=== PATIENT | female | born 1935 | race African-American/Black ===

== ENCOUNTER 2016-10-26 09:32 | Inpatient (IN) | payer MEDICARE ==
[~2016-10-26] VITALS: Ht 152.4 cm; Wt 82.0 kg
[~2016-10-26 09:32] MED LIST: AMLO10TA2; ASPI-231 PO; BISO5TAB44; FURO40TA4; GLIP-115; IRBE300T26; METF-312; PANT40TA2; SIMV-13; SPIR25TA88
[2016-10-26 11:02] LABS: Basophils # (auto) 0 uL; Basophils % (auto) 0.4 % (0.0-2.0); Eosinophils # (auto) 0.3 uL; Hematocrit 36.2 % (36.0-46.0); Hemoglobin 11.6 g/dL (12.2-16.2); Lymphocytes # (auto) 1.6 uL; Lymphocytes % (auto) 28.5 % (10.0-50.0); Mean Corpuscular Hemoglobin 28.7 pg (28.0-32.0); Mean Corpuscular Volume 89.9 fL (80.0-100.0); Mean Platelet Volume 7.8 fL (7.4-10.4); Monocytes # (auto) 0.6 uL; Monocytes % (auto) 9.8 % (0.0-12.0); Neutrophils # (auto) 3.2 uL; Neutrophils % (auto) 56.3 % (37.0-80.0); Platelet Count (auto) 243 10^3/uL (140-450); Red Cell Distribution Width 14.1 % (11.6-16.0); White Blood Cell 5.7 10^3/uL (4.4-10.8)
[2016-10-26 11:24] LABS: Albumin 3.9 g/dL (3.4-5.0); BUN/Creatinine Ratio 18.2; Bilirubin, Total 0.4 mg/dL (0.2-1.0); Calcium 9.8 mg/dL (8.5-10.1); Potassium 4.1 mmol/L (3.5-5.1); Total Protein 8.2 g/dL (6.4-8.2)
[2016-10-26] MEDS ORDERED: ENOXAPARIN SOD 100 MG/1 ML SYRINGE SC ONE (13:45)
[2016-10-26] MEDS ORDERED: DEXTROSE (50%) 50ML SYRG IV PRN (15:15)
[2016-10-26] MEDS ORDERED: TEMAZEPAM 15 MG CAP PO PRN (15:30)
[2016-10-26] MEDS ORDERED: cloNIDine HCL 0.1 MG TAB PO PRN (15:30)
[2016-10-26] MEDS ORDERED: MORPHINE SULF INJ 2 MG/ML SYRINGE 1ML IV PRN ×2 (15:30)
[2016-10-26] MEDS ORDERED: HYDROcodone-ACET 5/325MG TAB PO PRN (15:30)
[2016-10-26] MEDS ORDERED: DOCUSATE SOD 100 MG CAP PO PRN (15:30)
[2016-10-26] MEDS ORDERED: ACETAMINOPHEN 325 MG TAB PO PRN (15:30)
[2016-10-26] MEDS ORDERED: NITROGLYCERIN 0.4 MG SL TAB SL PRN (15:30)
[2016-10-26] MEDS: ASPirin-EC 81 mg tab PO SCH (16:30)
[2016-10-26] MEDS: MULTIPLE VITAMIN TAB PO SCH (16:30)
[2016-10-26] MEDS: FUROSEMIDE 40 MG TAB PO SCH (16:30)
[2016-10-26 16:36] VITALS: BP 128/57
[2016-10-26] MEDS: ACCU-CHEK COMFORT CURVE STRIP VI SCH (17:00)
[2016-10-26] MEDS: PANTOPRAZOLE 40 MG TAB PO SCH (17:00)
[2016-10-26] MEDS: InsuLIN REG 1unit/0.01ml Soln (100units/ml) SC SCH (18:13)
[2016-10-26] MEDS: glipiZIDE 5 MG TAB PO SCH (18:21)
[2016-10-26] MEDS: metFORMIN HYDROCHLORIDE 500 MG TAB PO SCH (18:22)
[2016-10-26 22:00] VITALS: BP 109/74
[2016-10-26] MEDS ORDERED: FAMOTIDINE 20 MG TAB PO SCH (22:00)
[2016-10-26] MEDS: BISOPROLOL 5MG TABLET PO SCH (22:00)
[2016-10-27] MEDS: GABAPENTIN 300 MG CAP PO SCH ×4 (00:24→22:21)
[2016-10-27] MEDS: ENOXAPARIN SOD 100 MG/1 ML SYRINGE SC SCH ×3 (00:24→22:21)
[2016-10-27] MEDS: ATORVASTATIN 20 MG TAB PO SCH ×2 (00:24→22:21)
[2016-10-27] MEDS: SODIUM CHLOR 0.9% PF (SALINE LOCK) 10ML VIAL IV SCH ×4 (00:25→22:31)
[2016-10-27 05:06] VITALS: BP 132/59
[2016-10-27 06:39] LABS: Basophils # (auto) 0 uL; Basophils % (auto) 0.8 % (0.0-2.0); Eosinophils # (auto) 0.4 uL; Eosinophils % (auto) 6.4 % (0.0-7.0); Hematocrit 30.7 % (36.0-46.0); Hemoglobin 9.9 g/dL (12.2-16.2); Lymphocytes # (auto) 2.3 uL; Lymphocytes % (auto) 41.2 % (10.0-50.0); Mean Corpuscular Hgb Conc. 32.3 g/dL (32.0-36.0); Mean Corpuscular Volume 89.8 fL (80.0-100.0); Mean Platelet Volume 7.6 fL (7.4-10.4); Monocytes # (auto) 0.5 uL; Monocytes % (auto) 9.7 % (0.0-12.0); Neutrophils # (auto) 2.4 uL; Neutrophils % (auto) 41.9 % (37.0-80.0); Platelet Count (auto) 222 10^3/uL (140-450); Red Cell Distribution Width 14.1 % (11.6-16.0); White Blood Cell 5.6 10^3/uL (4.4-10.8)
[2016-10-27] MEDS: metFORMIN HYDROCHLORIDE 500 MG TAB PO SCH ×2 (06:42→17:21)
[2016-10-27] MEDS: glipiZIDE 5 MG TAB PO SCH ×2 (06:50→17:21)
[2016-10-27] MEDS: InsuLIN REG 1unit/0.01ml Soln (100units/ml) SC SCH ×5 (06:54→22:31)
[2016-10-27] MEDS: ACCU-CHEK COMFORT CURVE STRIP VI SCH ×5 (06:54→22:28)
[2016-10-27 06:57] LABS: Albumin 3.1 g/dL (3.4-5.0); BUN/Creatinine Ratio 18.8; Calcium 8.5 mg/dL (8.5-10.1)
[2016-10-27 06:59] LABS: Bilirubin, Total 0.3 mg/dL (0.2-1.0); Total Protein 6.8 g/dL (6.4-8.2)
[2016-10-27 08:30] VITALS: BP 121/40
[2016-10-27] MEDS: ONDANSETRON HCL 4 MG/2 ML VIAL IV PRN ×2 (09:24→20:48)
[2016-10-27] MEDS: IRBESARTAN 300MG TABLET PO SCH (10:00)
[2016-10-27 12:00] VITALS: BP_SYST 120; BP_SYST 125; BP_DIAS 61; BP_DIAS 65; BP_DIAS 70
[2016-10-27 12:30] VITALS: BP 120/61
[2016-10-27] MEDS: ASPirin-EC 81 mg tab PO SCH (12:30)
[2016-10-27] MEDS: SPIRONOLACTONE 25 MG TAB PO SCH (12:31)
[2016-10-27] MEDS: FUROSEMIDE 40 MG TAB PO SCH (12:31)
[2016-10-27] MEDS: PANTOPRAZOLE 40 MG TAB PO SCH (12:31)
[2016-10-27] MEDS: MULTIPLE VITAMIN TAB PO SCH (12:31)
[2016-10-27 17:00] VITALS: BP 130/66
[2016-10-27] MEDS: BISOPROLOL 5MG TABLET PO SCH (22:00)
[2016-10-27 22:25] VITALS: BP 124/84
[2016-10-28 05:00] VITALS: BP 106/76
[2016-10-28] MEDS: GABAPENTIN 300 MG CAP PO SCH (05:51)
[2016-10-28] MEDS: SODIUM CHLOR 0.9% PF (SALINE LOCK) 10ML VIAL IV SCH (05:51)
[2016-10-28] MEDS: InsuLIN REG 1unit/0.01ml Soln (100units/ml) SC SCH ×2 (05:56→11:30)
[2016-10-28] MEDS: ACCU-CHEK COMFORT CURVE STRIP VI SCH ×2 (05:56→11:30)
[2016-10-28] MEDS: glipiZIDE 5 MG TAB PO SCH (06:56)
[2016-10-28] MEDS: metFORMIN HYDROCHLORIDE 500 MG TAB PO SCH (06:57)
[2016-10-28 08:52] VITALS: BP 134/64
[2016-10-28] MEDS: IRBESARTAN 300MG TABLET PO SCH (10:00)
[2016-10-28] MEDS: SPIRONOLACTONE 25 MG TAB PO SCH (10:20)
[2016-10-28] MEDS: FUROSEMIDE 40 MG TAB PO SCH (10:21)
[2016-10-28] MEDS: MULTIPLE VITAMIN TAB PO SCH (10:21)
[2016-10-28] MEDS: ASPirin-EC 81 mg tab PO SCH (10:21)
[2016-10-28] MEDS: PANTOPRAZOLE 40 MG TAB PO SCH (10:21)
[2016-10-28] MEDS: ENOXAPARIN SOD 100 MG/1 ML SYRINGE SC SCH (10:22)
[2016-10-28] MEDS: ONDANSETRON HCL 4 MG/2 ML VIAL IV PRN ×2 (11:26→12:03)
[2016-10-28 12:13] VITALS: BP 102/56
[2016-10-28 12:57] VITALS: BP 141/81
== END 2016-10-28 13:05 | disposition home or self-care (01) | DRG 204 ==
LOC: ER 09:32 → TELE 09:33 → TELE-E-ADS 16:59 → TELE-EAST 18:12
PROVIDERS: ADMIT Internal Medicine; ATTEND Internal Medicine Pulmonary Disease
DX: R06.00 Dyspnea, unspecified (principal); I42.9 Cardiomyopathy, unspecified; K21.9 Gastro-esophageal reflux disease without esophagitis; I12.9 Hypertensive chronic kidney disease with stage 1 through stage 4 chronic kidney disease, or unspecified chronic kidney disease; E11.21 Type 2 diabetes mellitus with diabetic nephropathy; D63.8 Anemia in other chronic diseases classified elsewhere; E11.22 Type 2 diabetes mellitus with diabetic chronic kidney disease; E11.41 Type 2 diabetes mellitus with diabetic mononeuropathy; E11.65 Type 2 diabetes mellitus with hyperglycemia; N18.3 Chronic kidney disease, stage 3 (moderate); M19.90 Unspecified osteoarthritis, unspecified site; E78.5 Hyperlipidemia, unspecified; H83.09 Labyrinthitis, unspecified ear; Z68.35 Body mass index [BMI] 35.0-35.9, adult; Z82.49 Family history of ischemic heart disease and other diseases of the circulatory system; Z95.0 Presence of cardiac pacemaker; Z83.3 Family history of diabetes mellitus
CPT/HCPCS: 36415; 71020; 78582; 80053; 82962; 83036; 84484; 85025; 85049; 85379; 93970; 94761; J1815; J2405

== ENCOUNTER 2017-03-18 10:09 | Emergency (ER) | payer MEDICARE, MEDICAID ==
[~2017-03-18] VITALS: Ht 149.9 cm; Wt 84.8 kg
[~2017-03-18 10:09] MED LIST changes: -AMLO10TA2; -BISO5TAB44; +BISO5TAB44 PO; -FURO40TA4; +FURO40TA4 PO; -GLIP-115; +GLIP-115 PO; -IRBE300T26; +IRBE300T26 PO; -METF-312; +METF-370 PO; -PANT40TA2; -SIMV-13; +SIMV-13 PO; -SPIR25TA88; +SPIR25TA88 PO
[2017-03-18 11:01] LABS: Basophils # (auto) 0 uL; Basophils % (auto) 0.4 % (0.0-2.0); CONDITION Y; Eosinophils # (auto) 0.3 uL; Eosinophils % (auto) 4.7 % (0.0-7.0); Hematocrit 36.2 % (36.0-46.0); Lymphocytes # (auto) 1.6 uL; Lymphocytes % (auto) 29.8 % (10.0-50.0); Mean Corpuscular Hemoglobin 29.6 pg (28.0-32.0); Mean Corpuscular Volume 89.7 fL (80.0-100.0); Mean Platelet Volume 7.7 fL (7.4-10.4); Monocytes # (auto) 0.4 uL; Monocytes % (auto) 7.7 % (0.0-12.0); Neutrophils # (auto) 3.1 uL; Neutrophils % (auto) 57.4 % (37.0-80.0); Platelet Count (auto) 228 10^3/uL (140-450); Red Cell Distribution Width 13.7 % (11.6-16.0); White Blood Cell 5.4 10^3/uL (4.4-10.8)
[2017-03-18 11:28] LABS: Albumin 3.5 g/dL (3.4-5.0); Alkaline Phosphatase 57 U/L (45-117); Anion Gap 9 (5-15); Aspartate Aminotransferase 17 U/L (15-37); BUN/Creatinine Ratio 20.5; Bilirubin, Total 0.3 mg/dL (0.2-1.0); Blood Urea Nitrogen 31 mg/dL (7-18); Calcium 8.9 mg/dL (8.5-10.1); Carbon Dioxide 26 mmol/L (21-32); Chloride 106 mmol/L (98-107); GFR African American 42 mL/min; GFR Non-African American 35 mL/min; Glucose 233 mg/dL (74-106); Potassium 3.7 mmol/L (3.5-5.1); Sodium 141 mmol/L (136-145); Total Protein 7.8 g/dL (6.4-8.2)
[2017-03-18 12:30] VITALS: BP 167/89
== END 2017-03-18 15:32 | disposition home or self-care (01) ==
LOC: ER 10:09
DX: R20.0 Anesthesia of skin (principal); M19.90 Unspecified osteoarthritis, unspecified site; I25.10 Atherosclerotic heart disease of native coronary artery without angina pectoris; E11.9 Type 2 diabetes mellitus without complications; K21.9 Gastro-esophageal reflux disease without esophagitis; E78.5 Hyperlipidemia, unspecified; I10 Essential (primary) hypertension; Z79.82 Long term (current) use of aspirin; Z95.0 Presence of cardiac pacemaker
CPT/HCPCS: 36415; 80053; 84484; 85025; 93005; 93971

== ENCOUNTER 2017-06-10 07:37 | Emergency (ER) | payer MEDICARE, MEDICAID ==
[~2017-06-10] VITALS: Ht 149.9 cm; Wt 81.6 kg
[2017-06-10 09:30] LABS: Basophils # (auto) 0.1 uL; Basophils % (auto) 1.5 % (0.0-2.0); CONDITION Y; Eosinophils # (auto) 0.3 uL; Eosinophils % (auto) 5.8 % (0.0-7.0); Hematocrit 36.3 % (36.0-46.0); Hemoglobin 11.8 g/dL (12.2-16.2); Lymphocytes # (auto) 1.2 uL; Mean Corpuscular Hgb Conc. 32.4 g/dL (32.0-36.0); Mean Corpuscular Volume 89.7 fL (80.0-100.0); Mean Platelet Volume 7.8 fL (7.4-10.4); Monocytes # (auto) 0.5 uL; Monocytes % (auto) 8.6 % (0.0-12.0); Neutrophils # (auto) 3.7 uL; Neutrophils % (auto) 64.1 % (37.0-80.0); Platelet Count (auto) 237 10^3/uL (140-450); Red Cell Distribution Width 15.1 % (11.6-16.0); White Blood Cell 5.8 10^3/uL (4.4-10.8)
[2017-06-10] MEDS ORDERED: LABETALOL HCL 5 MG/ML ML 20ML VIAL IV ONE (09:45)
[2017-06-10 10:00] LABS: Albumin 3.6 g/dL (3.4-5.0); Calcium 9.6 mg/dL (8.5-10.1); Potassium 4.4 mmol/L (3.5-5.1)
[2017-06-10 10:01] LABS: BUN/Creatinine Ratio 17.3
[2017-06-10 10:04] LABS: Bilirubin, Total 0.4 mg/dL (0.2-1.0)
[2017-06-10 10:46] VITALS: BP 200/80
[2017-06-10] MEDS ORDERED: cloNIDine HCL 0.1 MG TAB PO ONE (11:00)
[2017-06-10 12:57] LABS: Urine Bilirubin Negative (Negative); Urine Blood Negative /uL (Negative); Urine Color Yellow (Yellow); Urine Glucose Normal (Normal); Urine Ketone Negative (Negative); Urine Nitrite Negative (Negative); Urine RBC <1 /hpf (0 - 4); Urine Squamous Epithelial Cell FEW /hpf (<5); Urine Urobilinogen Normal (Negative)
== END 2017-06-10 13:48 | disposition home or self-care (01) ==
LOC: ER 07:37
DX: E11.22 Type 2 diabetes mellitus with diabetic chronic kidney disease (principal); I12.9 Hypertensive chronic kidney disease with stage 1 through stage 4 chronic kidney disease, or unspecified chronic kidney disease; N18.3 Chronic kidney disease, stage 3 (moderate); Z79.4 Long term (current) use of insulin; K21.9 Gastro-esophageal reflux disease without esophagitis; Z79.82 Long term (current) use of aspirin; Z96.89 Presence of other specified functional implants
CPT/HCPCS: 36415; 71020; 80053; 81001; 84484; 85025; 93005; 94761; 96374

== ENCOUNTER 2017-07-06 02:31 | Emergency (ER) | payer MEDICARE, MEDICAID ==
[~2017-07-06] VITALS: Ht 149.9 cm; Wt 81.6 kg
[2017-07-06 02:48] VITALS: BP 207/96
[2017-07-06] MEDS ORDERED: cloNIDine HCL 0.1 MG TAB ONE (02:56)
[2017-07-06] MEDS ORDERED: cloNIDine HCL 0.1 MG TAB PO ONE (03:15)
== END 2017-07-06 04:30 | disposition left against medical advice (07) ==
LOC: ER 02:34
DX: M79.602 Pain in left arm (principal); R03.0 Elevated blood-pressure reading, without diagnosis of hypertension; Z53.21 Procedure and treatment not carried out due to patient leaving prior to being seen by health care provider
CPT/HCPCS: 93005

== ENCOUNTER 2017-07-13 09:03 | Emergency (ER) | payer MEDICARE, MEDICAID ==
[~2017-07-13] VITALS: Ht 149.9 cm; Wt 86.2 kg
[2017-07-13] MEDS ORDERED: cloNIDine HCL 0.1 MG TAB PO ONE (09:30)
[2017-07-13 10:45] VITALS: BP 188/104
== END 2017-07-13 12:05 | disposition home or self-care (01) ==
LOC: ER 09:03
DX: J40 Bronchitis, not specified as acute or chronic (principal); J00 Acute nasopharyngitis [common cold]; I10 Essential (primary) hypertension; M19.90 Unspecified osteoarthritis, unspecified site; E11.9 Type 2 diabetes mellitus without complications; E78.5 Hyperlipidemia, unspecified; Z79.899 Other long term (current) drug therapy
CPT/HCPCS: 71010

== ENCOUNTER 2017-08-30 19:13 | Emergency (ER) | payer MEDICARE, MEDICAID ==
[~2017-08-30] VITALS: Ht 149.9 cm; Wt 79.4 kg
[2017-08-31 00:12] VITALS: BP 174/88
[2017-08-31 03:30] LABS: Basophils # (auto) 0.1 uL; Basophils % (auto) 1.2 % (0.0-2.0); Eosinophils # (auto) 0.2 uL; Eosinophils % (auto) 3.5 % (0.0-7.0); Hematocrit 34.5 % (36.0-46.0); Hemoglobin 11.2 g/dL (12.2-16.2); Lymphocytes # (auto) 2.2 uL; Lymphocytes % (auto) 33.7 % (10.0-50.0); Mean Corpuscular Hemoglobin 28.8 pg (28.0-32.0); Mean Corpuscular Hgb Conc. 32.4 g/dL (32.0-36.0); Monocytes # (auto) 0.7 uL; Monocytes % (auto) 9.9 % (0.0-12.0); Neutrophils # (auto) 3.4 uL; Neutrophils % (auto) 51.7 % (37.0-80.0); Nucleated Red Blood Cells % 0.1 %; Platelet Count (auto) 193 10^3/uL (140-450); Red Cell Distribution Width 14.5 % (11.8-14.3); White Blood Cell 6.6 10^3/uL (4.4-10.8)
[2017-08-31 03:47] LABS: Albumin 3.2 g/dL (3.4-5.0); BUN/Creatinine Ratio 13.8; Calcium 9.1 mg/dL (8.5-10.1); Potassium 3.8 mmol/L (3.5-5.1)
[2017-08-31 03:50] LABS: Bilirubin, Total 0.3 mg/dL (0.2-1.0); Total Protein 7.6 g/dL (6.4-8.2)
== END 2017-08-31 04:42 | disposition home or self-care (01) ==
LOC: ER 19:13
DX: R51 Headache (principal); E11.40 Type 2 diabetes mellitus with diabetic neuropathy, unspecified; I10 Essential (primary) hypertension; E78.5 Hyperlipidemia, unspecified; M19.90 Unspecified osteoarthritis, unspecified site; Z79.4 Long term (current) use of insulin
CPT/HCPCS: 36415; 70450; 80053; 85025

== ENCOUNTER → 2017-10-10 | Emergency (ER) | payer MEDICARE, MEDICAID | END | disposition left against medical advice (07) | LOC: ER 20:07 | DX: J00 Acute nasopharyngitis [common cold] (principal); Z53.21 Procedure and treatment not carried out due to patient leaving prior to being seen by health care provider ==

== ENCOUNTER 2017-11-23 03:51 | Emergency (ER) | payer MEDICARE, MEDICAID ==
[~2017-11-23] VITALS: Ht 149.9 cm; Wt 79.4 kg
[2017-11-23 04:45] LABS: Basophils # (auto) 0 uL; Basophils % (auto) 0.8 % (0.0-2.0); Eosinophils # (auto) 0.3 uL; Eosinophils % (auto) 4.9 % (0.0-7.0); Hemoglobin 11.5 g/dL (12.2-16.2); Lymphocytes # (auto) 1.9 uL; Mean Corpuscular Hemoglobin 28.8 pg (28.0-32.0); Mean Corpuscular Hgb Conc. 32.1 g/dL (32.0-36.0); Mean Corpuscular Volume 89.8 fL (80.0-100.0); Monocytes # (auto) 0.6 uL; Neutrophils % (auto) 51.3 % (37.0-80.0); Platelet Count (auto) 219 10^3/uL (140-450); Red Blood Cells 4.01 10^6/uL (4.0-5.20); Red Cell Distribution Width 14.9 % (11.8-14.3); White Blood Cell 5.8 10^3/uL (4.4-10.8)
[2017-11-23 05:07] LABS: Albumin 3.5 g/dL (3.4-5.0); BUN/Creatinine Ratio 21.1; Bilirubin, Total 0.2 mg/dL (0.2-1.0); Calcium 8.8 mg/dL (8.5-10.1); Potassium 4.1 mmol/L (3.5-5.1); Total Protein 8.1 g/dL (6.4-8.2)
[2017-11-23] MEDS ORDERED: cloNIDine HCL 0.1 MG TAB PO ONE ×2 (07:45→08:15)
[2017-11-23 09:30] VITALS: BP 133/86
== END 2017-11-23 10:41 | disposition home or self-care (01) ==
LOC: ER 03:51
DX: I10 Essential (primary) hypertension (principal); E11.9 Type 2 diabetes mellitus without complications; M19.90 Unspecified osteoarthritis, unspecified site; E78.5 Hyperlipidemia, unspecified; Z79.899 Other long term (current) drug therapy; Z95.0 Presence of cardiac pacemaker; R53.1 Weakness
CPT/HCPCS: 36415; 70450; 80053; 85025; 85652

== ENCOUNTER 2018-03-08 23:10 | Emergency (ER) | payer MEDICARE, MEDICAID ==
[~2018-03-08] VITALS: Ht 149.9 cm; Wt 86.2 kg
[2018-03-08 23:19] VITALS: BP 164/114
[2018-03-09 00:01] LABS: Basophils # (auto) 0.1 uL; Basophils % (auto) 1.4 % (0.0-2.0); Eosinophils # (auto) 0.4 uL; Eosinophils % (auto) 4.7 % (0.0-7.0); Hematocrit 34.7 % (36.0-46.0); Hemoglobin 11.4 g/dL (12.2-16.2); Lymphocytes # (auto) 2.5 uL; Mean Corpuscular Hemoglobin 29.5 pg (28.0-32.0); Mean Corpuscular Hgb Conc. 32.9 g/dL (32.0-36.0); Mean Corpuscular Volume 89.8 fL (80.0-100.0); Monocytes # (auto) 0.9 uL; Monocytes % (auto) 12.2 % (0.0-12.0); Neutrophils # (auto) 3.7 uL; Neutrophils % (auto) 48.7 % (37.0-80.0); Platelet Count (auto) 209 10^3/uL (140-450); Red Blood Cells 3.86 10^6/uL (4.0-5.20); Red Cell Distribution Width 14.2 % (11.8-14.3); White Blood Cell 7.7 10^3/uL (4.4-10.8)
[2018-03-09 00:12] LABS: INR 0.93 (0.9-1.15); Partial Thromboplastin Time 25.8 sec (23.78-33.04)
[2018-03-09 00:14] LABS: Alanine Aminotransferase 22 U/L (13-56); Albumin 3.6 g/dL (3.4-5.0); Anion Gap 11 (5-15); Aspartate Aminotransferase 16 U/L (15-37); BUN/Creatinine Ratio 19.9; Blood Urea Nitrogen 30 mg/dL (7-18); Calcium 9.2 mg/dL (8.5-10.1); Carbon Dioxide 22 mmol/L (21-32); Chloride 108 mmol/L (98-107); GFR African American 42 mL/min; GFR Non-African American 35 mL/min; Glucose 148 mg/dL (74-106); Potassium 4.2 mmol/L (3.5-5.1); Sodium 141 mmol/L (136-145)
[2018-03-09 00:22] LABS: Alkaline Phosphatase 67 U/L (45-117); Bilirubin, Total 0.2 mg/dL (0.2-1.0); Total Protein 8.3 g/dL (6.4-8.2)
== END 2018-03-09 04:06 | disposition left against medical advice (07) ==
LOC: EDBD → ER 23:13
DX: M79.89 Other specified soft tissue disorders (principal); Z53.21 Procedure and treatment not carried out due to patient leaving prior to being seen by health care provider
CPT/HCPCS: 36415; 72131; 73630; 80053; 83735; 83880; 84484; 85025; 85610; 85730; 93005

== ENCOUNTER 2018-03-09 07:39 | Emergency (ER) | payer MEDICARE, MEDICAID ==
[~2018-03-09] VITALS: Ht 149.9 cm; Wt 81.6 kg
[2018-03-09] MEDS ORDERED: GABAPENTIN 400 MG CAP PO ONE ×2 (08:15→08:30)
[2018-03-09] MEDS ORDERED: traMADol HCL 50 MG TAB PO ONE ×2 (08:15→08:30)
[2018-03-09 10:00] VITALS: BP 156/65
== END 2018-03-09 10:44 | disposition home or self-care (01) ==
LOC: EDBD 07:39 → ER 07:39
DX: M79.605 Pain in left leg (principal); I10 Essential (primary) hypertension; E78.5 Hyperlipidemia, unspecified; E11.9 Type 2 diabetes mellitus without complications; M19.90 Unspecified osteoarthritis, unspecified site; Z79.82 Long term (current) use of aspirin; Z79.84 Long term (current) use of oral hypoglycemic drugs; Z95.0 Presence of cardiac pacemaker
CPT/HCPCS: 93971

== ENCOUNTER 2018-04-30 06:44 | Inpatient (IN) | payer MEDICARE, MEDICAID ==
[~2018-04-30] VITALS: Ht 149.9 cm; Wt 94.7 kg
[2018-04-30] MEDS ORDERED: cloNIDine HCL 0.1 MG TAB PO ONE (07:15)
[2018-04-30 08:17] LABS: Basophils # (auto) 0 uL; Basophils % (auto) 0.7 % (0.0-2.0); Eosinophils # (auto) 0.3 uL; Eosinophils % (auto) 4.3 % (0.0-7.0); Hematocrit 34.1 % (36.0-46.0); Lymphocytes # (auto) 1.7 uL; Lymphocytes % (auto) 28.9 % (10.0-50.0); Mean Corpuscular Hemoglobin 29.4 pg (28.0-32.0); Mean Corpuscular Hgb Conc. 32.3 g/dL (32.0-36.0); Mean Corpuscular Volume 90.9 fL (80.0-100.0); Monocytes # (auto) 0.6 uL; Neutrophils # (auto) 3.3 uL; Neutrophils % (auto) 56.1 % (37.0-80.0); Nucleated Red Blood Cells % 0.1 %; Platelet Count (auto) 187 10^3/uL (140-450); Red Blood Cells 3.75 10^6/uL (4.0-5.20); Red Cell Distribution Width 14.8 % (11.8-14.3); White Blood Cell 5.9 10^3/uL (4.4-10.8)
[2018-04-30 08:35] LABS: Albumin 3.4 g/dL (3.4-5.0); BUN/Creatinine Ratio 23.5; Bilirubin, Total 0.2 mg/dL (0.2-1.0); Magnesium 2.3 mg/dL (1.6-2.6); Potassium 4.3 mmol/L (3.5-5.1)
[2018-04-30] MEDS ORDERED: LEVEMIR SC (09:08)
[2018-04-30] MEDS ORDERED: ENOXAPARIN SOD 80 MG/0.8ML SYRINGE SC ONE (09:15)
[2018-04-30] MEDS ORDERED: ASPirin 81 mg TAB PO ONE (09:15)
[2018-04-30] MEDS ORDERED: LORazepam 0.5 MG TAB PO PRN (10:45)
[2018-04-30] MEDS ORDERED: LABETALOL HCL 5 MG/ML ML 20ML VIAL IV PRN ×2 (10:45)
[2018-04-30] MEDS ORDERED: PROMETHAZINE HCL 25 MG/ML 1ML IV PRN (10:45)
[2018-04-30] MEDS ORDERED: TEMAZEPAM 15 MG CAP PO PRN (10:45)
[2018-04-30] MEDS ORDERED: hydrALAZINE HCL 20 MG/ML VL IV ONE ×2 (10:45)
[2018-04-30] MEDS ORDERED: HYDROcodone-ACET 5/325MG TAB PO PRN (10:45)
[2018-04-30] MEDS ORDERED: NITROGLYCERIN 0.4 MG SL TAB SL PRN (10:45)
[2018-04-30] MEDS ORDERED: ACETAMINOPHEN 500 MG TAB PO PRN (10:45)
[2018-04-30] MEDS ORDERED: DEXTROSE (50%) 50ML SYRG IV PRN (10:45)
[2018-04-30] MEDS ORDERED: MORPHINE SULF INJ 2 MG/ML SYRINGE 1ML IV PRN ×2 (10:45)
[2018-04-30 10:55] LABS: Urine Bacteria NONE SEEN /hpf (None Seen); Urine Blood Negative /uL (Negative); Urine Specific Gravity 1.008 (1.001-1.035); Urine WBC 3 /hpf (0 - 5)
[2018-04-30] MEDS ORDERED: ENOXAPARIN SOD 30 MG/0.3 ML SYRINGE SC SCH (11:15)
[2018-04-30] MEDS ORDERED: LOSARTAN POTASSIUM 50 MG TAB PO ONE (11:15)
[2018-04-30] MEDS ORDERED: PANTOPRAZOLE 40 MG TAB PO SCH (11:15)
[2018-04-30] MEDS ORDERED: glipiZIDE 5 MG TAB PO ONE (11:15)
[2018-04-30] MEDS ORDERED: ASPirin-EC 81 mg tab PO ONE (11:15)
[2018-04-30] MEDS ORDERED: ENOXAPARIN SOD 40 MG/0.4 ML SYRINGE SC SCH (11:15)
[2018-04-30] MEDS: ACCU-CHEK COMFORT CURVE STRIP VI SCH ×3 (11:36→22:10)
[2018-04-30] MEDS: InsuLIN REG 1unit/0.01ml Soln (100units/ml) SC SCH ×3 (11:43→22:10)
[2018-04-30] MEDS: SODIUM CHLOR 0.9% PF (SALINE LOCK) 10ML VIAL/SYR IV SCH ×2 (14:00→22:10)
[2018-04-30] MEDS: ISOSORBIDE DINITRATE 10 MG TAB PO SCH ×2 (15:11→22:10)
[2018-04-30 16:41] VITALS: BP 120/72
[2018-04-30] MEDS ORDERED: PATIENTS OWN MEDICATION (Simvastatin 40 MG) PO SCH (18:00)
[2018-04-30] MEDS: FUROSEMIDE 40 MG/4 ML VIAL IV SCH (18:02)
[2018-04-30] MEDS: POTASSIUM CHL 20 Meq TABLET PO SCH (18:02)
[2018-04-30 21:48] VITALS: BP 158/88
[2018-04-30] MEDS: PRAVASTATIN SODIUM 20 MG TAB PO SCH (22:09)
[2018-04-30 22:50] VITALS: BP 120/70
[2018-05-01 04:42] VITALS: BP 135/73
[2018-05-01] MEDS: ISOSORBIDE DINITRATE 10 MG TAB PO SCH ×3 (05:49→21:53)
[2018-05-01] MEDS: FUROSEMIDE 40 MG/4 ML VIAL IV SCH ×2 (05:51→18:00)
[2018-05-01] MEDS: SODIUM CHLOR 0.9% PF (SALINE LOCK) 10ML VIAL/SYR IV SCH ×3 (06:00→22:52)
[2018-05-01 06:19] LABS: Basophils # (auto) 0 uL; Basophils % (auto) 0.9 % (0.0-2.0); Eosinophils # (auto) 0.2 uL; Eosinophils % (auto) 4.1 % (0.0-7.0); Hematocrit 29.7 % (36.0-46.0); Hemoglobin 9.8 g/dL (12.2-16.2); Lymphocytes # (auto) 1.6 uL; Lymphocytes % (auto) 31.2 % (10.0-50.0); Mean Corpuscular Hemoglobin 29.5 pg (28.0-32.0); Mean Corpuscular Hgb Conc. 32.9 g/dL (32.0-36.0); Mean Corpuscular Volume 89.6 fL (80.0-100.0); Monocytes # (auto) 0.6 uL; Monocytes % (auto) 11.5 % (0.0-12.0); Neutrophils # (auto) 2.7 uL; Neutrophils % (auto) 52.3 % (37.0-80.0); Platelet Count (auto) 179 10^3/uL (140-450); Red Blood Cells 3.32 10^6/uL (4.0-5.20); Red Cell Distribution Width 14.7 % (11.8-14.3); White Blood Cell 5.2 10^3/uL (4.4-10.8)
[2018-05-01] MEDS: glipiZIDE 5 MG TAB PO SCH (06:32)
[2018-05-01] MEDS: InsuLIN REG 1unit/0.01ml Soln (100units/ml) SC SCH ×4 (06:32→22:53)
[2018-05-01] MEDS: ACCU-CHEK COMFORT CURVE STRIP VI SCH ×4 (06:33→21:53)
[2018-05-01 06:38] LABS: Albumin 3.1 g/dL (3.4-5.0); BUN/Creatinine Ratio 22.1; Bilirubin, Total 0.3 mg/dL (0.2-1.0); Calcium 9.2 mg/dL (8.5-10.1); Total Protein 7.2 g/dL (6.4-8.2)
[2018-05-01 08:00] VITALS: BP 136/75
[2018-05-01] MEDS: LOSARTAN POTASSIUM 50 MG TAB PO SCH (09:44)
[2018-05-01] MEDS ORDERED: cefTRIAXone 1GM/10ml IVPUSH 10 ML IV ONE (09:45)
[2018-05-01] MEDS: Bisoprolol Fumarate 5 MG TAB PO SCH (09:50)
[2018-05-01] MEDS: INSULIN LANTUS (GLARGINE) 1 /0.01ml (100units/ml) SC SCH (09:50)
[2018-05-01] MEDS ORDERED: IRBESARTAN 300 MG PO SCH (10:00)
[2018-05-01] MEDS ORDERED: ASPirin-EC 81 mg tab PO SCH (10:00)
[2018-05-01] MEDS ORDERED: INSULIN DETEMIR 30 UNIT SC SCH (10:00)
[2018-05-01] MEDS ORDERED: PATIENTS OWN MEDICATION (Glipizide 5 MG) PO SCH (10:00)
[2018-05-01 12:08] LABS: Hematocrit 32.3 % (36.0-46.0); Hemoglobin 10.4 g/dL (12.2-16.2)
[2018-05-01 12:23] VITALS: BP 142/72
[2018-05-01 16:44] VITALS: BP 117/62
[2018-05-01] MEDS: POTASSIUM CHL 20 Meq TABLET PO SCH (18:00)
[2018-05-01 18:01] LABS: Hematocrit 32.1 % (36.0-46.0); Hemoglobin 10.8 g/dL (12.2-16.2)
[2018-05-01 21:41] VITALS: BP 190/91
[2018-05-01] MEDS: hydrALAZINE HCL 20 MG/ML VL IV PRN (21:52)
[2018-05-01] MEDS: PRAVASTATIN SODIUM 20 MG TAB PO SCH (21:52)
[2018-05-01] MEDS: PANTOPRAZOLE 40 MG TAB PO SCH (21:52)
[2018-05-01] MEDS: LACTULOSE 20Gm/30ML SOLN PO PRN (22:52)
[2018-05-02] VITALS: BP 129/63
[2018-05-02 01:00] LABS: Hematocrit 32.4 % (36.0-46.0); Hemoglobin 10.6 g/dL (12.2-16.2)
[2018-05-02 04:43] VITALS: BP 150/75
[2018-05-02] MEDS: ISOSORBIDE DINITRATE 10 MG TAB PO SCH ×3 (06:00→21:34)
[2018-05-02] MEDS: InsuLIN REG 1unit/0.01ml Soln (100units/ml) SC SCH ×4 (06:56→21:33)
[2018-05-02] MEDS: SODIUM CHLOR 0.9% PF (SALINE LOCK) 10ML VIAL/SYR IV SCH ×3 (06:56→21:43)
[2018-05-02] MEDS: FUROSEMIDE 40 MG/4 ML VIAL IV SCH ×2 (06:56→18:00)
[2018-05-02] MEDS: glipiZIDE 5 MG TAB PO SCH (06:56)
[2018-05-02] MEDS: ACCU-CHEK COMFORT CURVE STRIP VI SCH ×4 (06:57→21:35)
[2018-05-02 07:16] LABS: Basophils # (auto) 0 uL; Basophils % (auto) 0.6 % (0.0-2.0); Eosinophils # (auto) 0.3 uL; Eosinophils % (auto) 4.5 % (0.0-7.0); Hematocrit 32.4 % (36.0-46.0); Hemoglobin 10.7 g/dL (12.2-16.2); Lymphocytes # (auto) 2.2 uL; Lymphocytes % (auto) 32.5 % (10.0-50.0); Mean Corpuscular Hemoglobin 29.6 pg (28.0-32.0); Monocytes # (auto) 0.7 uL; Monocytes % (auto) 10.5 % (0.0-12.0); Neutrophils # (auto) 3.5 uL; Neutrophils % (auto) 51.9 % (37.0-80.0); Nucleated Red Blood Cells % 0.1 %; Platelet Count (auto) 190 10^3/uL (140-450); Red Cell Distribution Width 14.6 % (11.8-14.3); White Blood Cell 6.8 10^3/uL (4.4-10.8)
[2018-05-02 07:25] LABS: Albumin 3.3 g/dL (3.4-5.0); BUN/Creatinine Ratio 24.2; Bilirubin, Total 0.4 mg/dL (0.2-1.0); Potassium 3.6 mmol/L (3.5-5.1); Total Protein 7.5 g/dL (6.4-8.2)
[2018-05-02] MEDS ORDERED: ADENOSINE 80 MG in GIVE UN-DILUTED 0 ML IV STA (08:32)
[2018-05-02 09:00] VITALS: BP 154/77
[2018-05-02] MEDS: cefTRIAXone 1GM/10ml IVPUSH 10 ML IV SCH (09:00)
[2018-05-02] MEDS: Bisoprolol Fumarate 5 MG TAB PO SCH (10:00)
[2018-05-02] MEDS: INSULIN LANTUS (GLARGINE) 1 /0.01ml (100units/ml) SC SCH (10:00)
[2018-05-02] MEDS: LOSARTAN POTASSIUM 50 MG TAB PO SCH (11:26)
[2018-05-02] MEDS: hydrALAZINE HCL 20 MG/ML VL IV PRN ×2 (11:26→13:36)
[2018-05-02 13:00] VITALS: BP 174/83
[2018-05-02] MEDS: PANTOPRAZOLE 40 MG TAB PO SCH ×2 (13:35→21:34)
[2018-05-02 17:51] VITALS: BP 114/45
[2018-05-02] MEDS: POTASSIUM CHL 20 Meq TABLET PO SCH (18:00)
[2018-05-02 21:30] VITALS: BP 108/73
[2018-05-02] MEDS: PRAVASTATIN SODIUM 20 MG TAB PO SCH (21:34)
[2018-05-02] MEDS: LACTULOSE 20Gm/30ML SOLN PO PRN (21:42)
[2018-05-03 05:00] VITALS: BP 121/70
[2018-05-03] MEDS: FUROSEMIDE 40 MG/4 ML VIAL IV SCH ×2 (05:24→17:41)
[2018-05-03] MEDS: ISOSORBIDE DINITRATE 10 MG TAB PO SCH ×2 (05:25→14:00)
[2018-05-03] MEDS: SODIUM CHLOR 0.9% PF (SALINE LOCK) 10ML VIAL/SYR IV SCH ×2 (05:25→14:41)
[2018-05-03] MEDS: glipiZIDE 5 MG TAB PO SCH (05:25)
[2018-05-03] MEDS: ACCU-CHEK COMFORT CURVE STRIP VI SCH ×3 (05:26→17:00)
[2018-05-03] MEDS: InsuLIN REG 1unit/0.01ml Soln (100units/ml) SC SCH ×3 (05:26→17:41)
[2018-05-03 07:41] VITALS: BP 119/61
[2018-05-03] MEDS: cefTRIAXone 1GM/10ml IVPUSH 10 ML IV SCH (08:50)
[2018-05-03 11:54] VITALS: BP 157/87
[2018-05-03] MEDS: PANTOPRAZOLE 40 MG TAB PO SCH (14:40)
[2018-05-03] MEDS: LOSARTAN POTASSIUM 50 MG TAB PO SCH (14:40)
[2018-05-03] MEDS: INSULIN LANTUS (GLARGINE) 1 /0.01ml (100units/ml) SC SCH (14:42)
[2018-05-03] MEDS: Bisoprolol Fumarate 5 MG TAB PO SCH (14:42)
[2018-05-03 16:37] VITALS: BP 94/51
[2018-05-03] MEDS: POTASSIUM CHL 20 Meq TABLET PO SCH (17:41)
== END 2018-05-03 18:54 | disposition home or self-care (01) | DRG 304 ==
LOC: EDBD 06:44 → ER 06:44 → TELE 06:45 → TELE-EAST 12:29
PROVIDERS: ADMIT Internal Medicine; ATTEND Internal Medicine
DX: I16.0 Hypertensive urgency (principal); I50.33 Acute on chronic diastolic (congestive) heart failure; N39.0 Urinary tract infection, site not specified; Z68.41 Body mass index [BMI] 40.0-44.9, adult; I13.0 Hypertensive heart and chronic kidney disease with heart failure and stage 1 through stage 4 chronic kidney disease, or unspecified chronic kidney disease; N18.3 Chronic kidney disease, stage 3 (moderate); M71.22 Synovial cyst of popliteal space [Baker], left knee; D63.8 Anemia in other chronic diseases classified elsewhere; E11.21 Type 2 diabetes mellitus with diabetic nephropathy; M19.90 Unspecified osteoarthritis, unspecified site; I25.10 Atherosclerotic heart disease of native coronary artery without angina pectoris; E78.00 Pure hypercholesterolemia, unspecified; E66.01 Morbid (severe) obesity due to excess calories; E11.22 Type 2 diabetes mellitus with diabetic chronic kidney disease; E11.42 Type 2 diabetes mellitus with diabetic polyneuropathy; Z83.3 Family history of diabetes mellitus; Z79.4 Long term (current) use of insulin; Z95.0 Presence of cardiac pacemaker; Z82.49 Family history of ischemic heart disease and other diseases of the circulatory system; Z79.899 Other long term (current) drug therapy; Z79.82 Long term (current) use of aspirin
CPT/HCPCS: 36415; 71045; 78452; 80053; 80061; 81001; 82378; 82550; 82962; 83036; 83735; 83880; 84443; 84484; 85014; 85018; 85025; 85045; 85652; 86141; 87086; 93005; 93017; 93306; 93971; 96374; J0153; J0696; J1815